=== PATIENT | female | born 1970 | race Caucasian/White ===

== ENCOUNTER 2016-10-27 18:27 | Emergency (ER) | payer MEDICARE, MEDICAID ==
[~2016-10-27] VITALS: Ht 167.6 cm; Wt 70.0 kg
[2016-10-27] MEDS ORDERED: ZIPR20CA2 PO (18:32)
[2016-10-27] MEDS ORDERED: BENZ0.5T3 PO (18:32)
[2016-10-27 21:42] LABS: BASOPHILS % 0.5 % (0.0-2.0); EOSINOPHILS % 0.8 % (0.0-5.0); HEMATOCRIT. 43.2 % (36.0-48.0); HEMOGLOBIN. 14.7 g/dL (12.0-16.0); LYMPHOCYTES % 18.1 % (20.0-50.0); MEAN CORPUSCULAR VOLUME 85.4 fL (81.0-99.0); MEAN PLATELET VOLUME 7.5 fl (7.4-10.4); MONOCYTES % 6.6 % (2.0-8.0); PLATELET 271 x1000/uL (130-400); RED BLOOD CELL COUNT 5.06 mill/uL (4.2-5.4); RED CELL DISTRIBUTION WIDTH 14.6 % (11.6-14.6); WHITE BLOOD COUNT 12.8 x1000/uL (4.5-11.0)
[2016-10-27 21:54] LABS: ALANINE AMINOTRANSFERASE 32 IU/L (13-61); ALBUMIN 4.1 g/dL (3.4-5.0); ANION GAP 9; CALCIUM 9.5 mg/dL (8.5-10.1); CARBON DIOXIDE 32 mEq/L (21-32); CHLORIDE 100 mEq/L (98-107); ETHANOL BLOOD < 10 mg/dL; INDEX HEMOLYSI 1 (1-3); INDEX ICTERIC 1 (1-4); INDEX LIPEMIC 1 (1-3); UREA NITROGEN BLOOD 7 mg/dL (7-21)
[2016-10-27 21:56] LABS: ACETAMINOPHEN < 2 ug/mL (10-30); eGFR > 60 mL/min (>60)
[2016-10-27] MEDS ORDERED: KCL 20MEQ/100ML PREMIX 100 ML IV ONE (22:30)
[2016-10-27 22:38] LABS: CLARITY URINE CLEAR (CLEAR); COLOR URINE YELLOW (YELLOW); GLUCOSE URINE NEGATIVE (NEGATIVE); KETONES URINE NEGATIVE (NEGATIVE); LEUKOCYTE ESTERASE URINE NEGATIVE (NEGATIVE); NITRITE URINE NEGATIVE (NEGATIVE); OCCULT BLOOD URINE NEGATIVE (NEGATIVE); PROTEIN URINE NEGATIVE (NEGATIVE); SPECIFIC GRAVITY URINE 1.005 (1.005-1.030); UROBILINOGEN URINE 0.2 E.U./dL (0.2-1.0)
[2016-10-27 22:49] LABS: *AMPHETAMINES SCREEN URINE NEGATIVE (NEGATIVE); *BARBITURATES SCREEN URINE NEGATIVE (NEGATIVE); *BENZODIAZEPINES SCREEN URINE NEGATIVE (NEGATIVE); *COCAINE SCREEN URINE NEGATIVE (NEGATIVE); CANNABINOID URINE SCREEN NEGATIVE (NEGATIVE); ECSTASY MDMA SCREEN URINE NEGATIVE (NEGATIVE); METHADONE URINE SCREEN NEGATIVE (NEGATIVE); OPIATES URINE SCREEN NEGATIVE (NEGATIVE); PHENCYCLIDINE URINE SCREEN NEGATIVE (NEGATIVE)
[2016-10-27] MEDS ORDERED: POTASSIUM CHLORIDE 20MEQ TABLET SR PO ONE (23:00)
[2016-10-28] MEDS ORDERED: LORAZEPAM 1MG TABLET PO ONE (00:45)
[2016-10-28] MEDS ORDERED: OLANZAPINE 5MG TABLET ODT PO ONE (04:00)
[2016-10-28] MEDS ORDERED: ZIPRASIDONE HCL 20MG CAPSULE PO ONE (07:15)
[2016-10-28] MEDS ORDERED: BENZTROPINE MESYLATE 0.5MG TABLET PO ONE (07:15)
[2016-10-28 10:45] VITALS: BP 153/88
== END 2016-10-28 12:04 | disposition home or self-care (01) ==
LOC: ER 18:28
DX: F25.9 Schizoaffective disorder, unspecified (principal); Z88.0 Allergy status to penicillin
CPT/HCPCS: 36415; 80053; 80305; 80329; 81003; 81025; 85025; 99284; G0482; 80307; J3480